=== PATIENT | female | born 1935 | race Caucasian/White ===

== ENCOUNTER → 2020-10-16 | Outpatient (CLI) | payer MEDICARE ==
[~2020-10-16] MED LIST: ADAL40KI SQ; ATOR40TA78 PO; CYCL1DRO OP; DONE10TA14 PO; LEVO75TA5 PO; RALO60TA12 PO
== END | disposition home or self-care (01) ==
LOC: CFH 10:39
PROVIDERS: ATTEND Family Medicine
DX: N15.1 Renal and perinephric abscess (principal); N81.4 Uterovaginal prolapse, unspecified; N13.30 Unspecified hydronephrosis; R19.00 Intra-abdominal and pelvic swelling, mass and lump, unspecified site
CPT/HCPCS: 72192; 74150

== ENCOUNTER → 2020-11-21 | Outpatient (CLI) | payer MEDICARE ==
[~2020-11-21] MED LIST changes: +BENZ100C PO; +CEFT2FRO2 IV; +OMNIPAQUE 350 MG/ML, 100ML BOTTLE ONE; +VANC125C11 PO
== END | disposition home or self-care (01) ==
LOC: CFH 09:11
PROVIDERS: ATTEND Physician Assistant
DX: N15.1 Renal and perinephric abscess (principal); N20.0 Calculus of kidney; N11.8 Other chronic tubulo-interstitial nephritis; R19.00 Intra-abdominal and pelvic swelling, mass and lump, unspecified site; N81.4 Uterovaginal prolapse, unspecified
CPT/HCPCS: 74177; Q9967

== ENCOUNTER 2020-12-30 10:04 | Outpatient (CLI) | payer MEDICARE ==
[~2020-12-30] VITALS: Ht 149.9 cm; Wt 60.3 kg
[~2020-12-30 10:04] MED LIST changes: -OMNIPAQUE 350 MG/ML, 100ML BOTTLE ONE
[2020-12-30 10:43] VITALS: BP 123/74
[2020-12-30] MEDS ORDERED: FENTANYL PF 100 MCG/2ML ONE ×2 (11:46)
[2020-12-30] MEDS ORDERED: MIDAZOLAM 1 MG/ML, 5ML ONE (11:46)
[2020-12-30] MEDS ORDERED: NALOXONE 1 MG/ML, 2ML ONE (11:47)
[2020-12-30] MEDS ORDERED: FLUMAZENIL 0.1 MG/1 ML, 5ML ONE (11:47)
[2020-12-30] MEDS ORDERED: LIDOCAINE 1%, 10ML ONE (12:36)
== END 2020-12-30 14:15 | disposition home or self-care (01) ==
LOC: RAD 10:04
PROVIDERS: ATTEND Urology
DX: N11.8 Other chronic tubulo-interstitial nephritis (principal); N13.2 Hydronephrosis with renal and ureteral calculous obstruction; Z79.890 Hormone replacement therapy; Z79.891 Long term (current) use of opiate analgesic; Z79.899 Other long term (current) drug therapy
CPT/HCPCS: 50693; 99156; 99157; C1729; C1751; C1769; C1892; C2625; J2250; J3010; J2310